=== PATIENT | female | born 1975 | race Hispanic/Latino ===

== ENCOUNTER 2016-11-28 12:14 | Emergency (ER) | payer OTHER ==
[2016-11-28 13:21] LABS: Basophils % (Auto) 0.5 % (0.0-1.8); Hematocrit 41.6 % (30.3-42.9); Hemoglobin 13.9 gm/dl (10.1-14.3); Mean Corpuscular HGB Conc 34 % (30-34); Mean Corpuscular Hemoglobin 29 pg (28-32); Mean Corpuscular Volume 86 fl (79-97); Platelet Count 166 K/mm3 (140-440); Red Blood Count 4.82 M/mm3 (3.65-5.03); Red Cell Distribution Width 14.5 % (13.2-15.2); White Blood Count 10.2 K/mm3 (4.5-11.0)
[2016-11-28] MEDS ORDERED: VALIUM IV ONE (13:39)
[2016-11-28 13:44] LABS: Blood Urea Nitrogen 13 mg/dL (7-17); Calcium 8.5 mg/dL (8.4-10.2); Carbon Dioxide 24 mmol/L (22-30); Glucose 104 mg/dL (65-100)
--- NOTE | 2016-11-28 13:44 | Emergency Department Report ---
ED Palpitations HPI - General Chief Complaint: Extremity Injury, Lower Stated Complaint: HBP/SOB/PANIC ATTACKS/RASH/SWELLING OF FEET Time Seen by Provider: 11/28/16 13:19 Source: patient Mode of arrival: Ambulatory Limitations: No Limitations - Related Data Previous Rx's Medication Instructions Recorded Last Taken Type ALBUTEROL Inhaler [ProAir HFA 2 puff IH QID PRN 14 Days 12/22/13 Unknown Rx Inhaler] Amoxicillin [Trimox CAP] 500 mg PO TID 10 Days 12/22/13 Unknown Rx predniSONE [Deltasone] 15 mg PO .TAPER #21 tab 12/22/13 Unknown Rx traMADol [Ultram 50 MG tab] 50 mg PO Q4HR PRN #20 tablet 02/21/14 Unknown Rx ALBUTEROL Inhaler [ProAir HFA 2 puff IH QID PRN #1 inhalation 06/24/14 Unknown Rx Inhaler] Azithromycin [Zithromax Z-SADAF] 250 mg PO DAILY #6 tablet 06/24/14 Unknown Rx Prednisone [Prednisone 10 mg 10 mg PO .TAPER #1 tab.ds.pk 06/24/14 Unknown Rx (6-Day Pack, 21 Tabs)] hydrOXYzine PAMOATE [Vistaril] 50 mg PO Q6HR PRN #20 capsule 06/24/14 Unknown Rx Gabapentin [Neurontin] 300 mg PO BID #30 cap 11/28/16 Unknown Rx Prednisone [predniSONE 10 mg 10 mg PO .TAPER #1 tab.ds.pk 11/28/16 Unknown Rx (6-Day Pack, 21 Tabs)] Triamcinolone Acetonide 60 ml TP BID #1 lotion 11/28/16 Unknown Rx [Triamcinolone 0.1% LOTION] hydrOXYzine HCL [Atarax] 25 mg PO Q6HR PRN #30 tablet 11/28/16 Unknown Rx Allergies Allergy/AdvReac Type Severity Reaction Status Date / Time No Known Allergies Allergy Verified 12/22/13 18:52 ED Review of Systems ROS: Stated complaint: HBP/SOB/PANIC ATTACKS/RASH/SWELLING OF FEET Other details as noted in HPI ED Past Medical Hx - Past Medical History Hx Hypertension: No Hx CVA: No Hx Heart Attack/AMI: No Hx Congestive Heart Failure: No Hx Diabetes: No Hx Deep Vein Thrombosis: No Hx Pulmonary Embolism: No Hx GERD: No Hx Liver Disease: No Hx Renal Disease: No Hx Sickle Cell Disease: No Hx Arthritis: No Hx Headaches / Migraines: No Hx Seizures: Yes (none since age 1) Hx Psychiatric Treatment: Yes (Anxiety attacks) Hx Asthma: Yes Hx COPD: No Hx Tuberculosis: No - Surgical History Additional Surgical History: 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 - Social History Smoking Status: Current Every Day Smoker - Medications Home Medications: Home Medications Medication Instructions Recorded Confirmed Last Taken Type ALBUTEROL Inhaler [ProAir HFA 2 puff IH QID PRN 14 Days 12/22/13 Unknown Rx Inhaler] Amoxicillin [Trimox CAP] 500 mg PO TID 10 Days 12/22/13 Unknown Rx predniSONE [Deltasone] 15 mg PO .TAPER #21 tab 12/22/13 Unknown Rx traMADol [Ultram 50 MG tab] 50 mg PO Q4HR PRN #20 tablet 02/21/14 Unknown Rx ALBUTEROL Inhaler [ProAir HFA 2 puff IH QID PRN #1 inhalation 06/24/14 Unknown Rx Inhaler] Azithromycin [Zithromax Z-SADAF] 250 mg PO DAILY #6 tablet 06/24/14 Unknown Rx Prednisone [Prednisone 10 mg 10 mg PO .TAPER #1 tab.ds.pk 06/24/14 Unknown Rx (6-Day Pack, 21 Tabs)] hydrOXYzine PAMOATE [Vistaril] 50 mg PO Q6HR PRN #20 capsule 06/24/14 Unknown Rx Gabapentin [Neurontin] 300 mg PO BID #30 cap 11/28/16 Unknown Rx Prednisone [predniSONE 10 mg 10 mg PO .TAPER #1 tab.ds.pk 11/28/16 Unknown Rx (6-Day Pack, 21 Tabs)] Triamcinolone Acetonide 60 ml TP BID #1 lotion 11/28/16 Unknown Rx [Triamcinolone 0.1% LOTION] hydrOXYzine HCL [Atarax] 25 mg PO Q6HR PRN #30 tablet 11/28/16 Unknown Rx ED Physical Exam - General Limitations: No Limitations ED Course Vital Signs 11/28/16 11/28/16 12:34 15:30 Temperature 99.0 F 98.5 F Pulse Rate 109 H 88 Respiratory 16 18 Rate Blood Pressure 179/110 Blood Pressure 150/88 [Left] O2 Sat by Pulse 100 100 Oximetry ED Medical Decision Making - Lab Data Result diagrams: 11/28/16 12:45 11/28/16 12:45 Critical care attestation.: If time is entered above; I have spent that time in minutes in the direct care of this critically ill patient, excluding procedure time. ED Disposition Clinical Impression: Rash and nonspecific skin eruption, Anxiety Disposition: DISCHARGED TO HOME OR SELFCARE Is pt being admited?: No Condition: Stable Instructions: Generalized Anxiety Disorder (ED) Prescriptions: Gabapentin [Neurontin] 300 mg PO BID #30 cap hydrOXYzine HCL [Atarax] 25 mg PO Q6HR PRN #30 tablet PRN Reason: Itching Prednisone [predniSONE 10 mg (6-Day Pack, 21 Tabs)] 10 mg PO .TAPER #1 tab.ds.pk Triamcinolone Acetonide [Triamcinolone 0.1% LOTION] 60 ml TP BID #1 lotion Referrals: SUKI VALENCIA MD [Primary Care Provider] - 3-5 Days Forms: Work/School Release Form(ED)
[2016-11-28 13:45] LABS: Anion Gap 20 mmol/L; Chloride 99.6 mmol/L (98-107); Potassium 3.8 mmol/L (3.6-5.0); Sodium 140 mmol/L (137-145)
[2016-11-28 15:34] VITALS: BP 150/88
== END 2016-11-28 15:34 | disposition home or self-care (01) ==
LOC: ED 12:14
DX: F41.9 Anxiety disorder, unspecified (principal); R21 Rash and other nonspecific skin eruption; R53.1 Weakness; J45.909 Unspecified asthma, uncomplicated; Z90.711 Acquired absence of uterus with remaining cervical stump; F17.200 Nicotine dependence, unspecified, uncomplicated
CPT/HCPCS: 36415; 80048; 85025; 93005; 93010; 96374; 99283; J3360

== ENCOUNTER 2017-02-18 19:22 | Emergency (ER) | payer OTHER ==
[2017-02-18] MEDS ORDERED: TORADOL IM ONE (20:32)
[2017-02-18 20:58] VITALS: BP 147/89
--- NOTE | 2017-02-18 21:00 | Emergency Department Report ---
ED Back Pain/Injury HPI - General Chief Complaint: Abdominal Pain Stated Complaint: BACK PAIN Time Seen by Provider: 02/18/17 20:31 Source: patient Limitations: No Limitations - History of Present Illness Initial Comments: This is a 41-year-old female nontoxic, well nourished in appearance, no acute signs of distress as ED complaining of lower back pain 2 days. Patient stated she was in [employer] and was taking a shower when she slipped and that on her buttock /lower back region. Patient denies pain radiating to lower extremities. Describes pain as aching with level of 10/10. Patient denies any loss of consciousness. Denies head trauma. Patient denies loss of consciousness, head trauma, ecchymosis, chest pain, short of breath, headache, blurry vision, fever , chills, stiff neck, dysuria, polyuria, polydipsia, decreased range of motion, bladder or bowel instability, diaphoresis, nausea, vomiting, abdominal pain, joint pain or swelling, visual changes, chest wall tenderness, numbness or tingling sensation extremity. Patient agrees to good rectal tone with no bladder overflow. Patient is currently ambulatory with no assistance. Patient denies any EtOH or recreational drugs. Patient denies any allergies or past medical history. MD Complaint: back injury -: Gradual, days(s) (2) Place: other (usp) Radiation: none Severity: moderate Severity scale (0 -10): 10 Quality: aching Consistency: constant Improves With: none Worsens With: none Context: fall Associated Symptoms: denies other symptoms. denies: confusion, weakness, chest pain, numbness, difficulty walking, cough, difficulty urinating, diaphoresis, incontinence, fever/chills, constipation, headaches, abdominal pain, loss of appetite, malaise, nausea/vomiting, rash, seizure, shortness of breath, syncope - Related Data Previous Rx's Medication Instructions Recorded Last Taken Type ALBUTEROL Inhaler [ProAir HFA 2 puff IH QID PRN 14 Days 12/22/13 Unknown Rx Inhaler] Amoxicillin [Trimox CAP] 500 mg PO TID 10 Days 12/22/13 Unknown Rx predniSONE [Deltasone] 15 mg PO .TAPER #21 tab 12/22/13 Unknown Rx traMADol [Ultram 50 MG tab] 50 mg PO Q4HR PRN #20 tablet 02/21/14 Unknown Rx ALBUTEROL Inhaler [ProAir HFA 2 puff IH QID PRN #1 inhalation 06/24/14 Unknown Rx Inhaler] Azithromycin [Zithromax Z-SADAF] 250 mg PO DAILY #6 tablet 06/24/14 Unknown Rx Prednisone [Prednisone 10 mg 10 mg PO .TAPER #1 tab.ds.pk 06/24/14 Unknown Rx (6-Day Pack, 21 Tabs)] hydrOXYzine PAMOATE [Vistaril] 50 mg PO Q6HR PRN #20 capsule 06/24/14 Unknown Rx Gabapentin [Neurontin] 300 mg PO BID #30 cap 11/28/16 Unknown Rx Prednisone [predniSONE 10 mg 10 mg PO .TAPER #1 tab.ds.pk 11/28/16 Unknown Rx (6-Day Pack, 21 Tabs)] Triamcinolone Acetonide 60 ml TP BID #1 lotion 11/28/16 Unknown Rx [Triamcinolone 0.1% LOTION] hydrOXYzine HCL [Atarax] 25 mg PO Q6HR PRN #30 tablet 11/28/16 Unknown Rx Cyclobenzaprine [Flexeril] 10 mg PO TID PRN #15 tablet 02/18/17 Unknown Rx Ibuprofen [Motrin 600 MG tab] 600 mg PO Q8H PRN #30 tablet 02/18/17 Unknown Rx Allergies Allergy/AdvReac Type Severity Reaction Status Date / Time No Known Allergies Allergy Verified 12/22/13 18:52 ED Review of Systems ROS: Stated complaint: BACK PAIN Other details as noted in HPI Constitutional: denies: chills, fever Eyes: denies: eye pain, eye discharge, vision change ENT: denies: ear pain, throat pain Respiratory: denies: cough, shortness of breath, wheezing Cardiovascular: denies: chest pain, palpitations Endocrine: no symptoms reported Gastrointestinal: denies: abdominal pain, nausea, diarrhea Genitourinary: denies: urgency, dysuria, discharge Musculoskeletal: denies: back pain, joint swelling, arthralgia Skin: denies: rash, lesions Neurological: denies: headache, weakness, paresthesias Psychiatric: denies: anxiety, depression Hematological/Lymphatic: denies: easy bleeding, easy bruising ED Past Medical Hx - Past Medical History Previous Medical History?: Yes Hx Hypertension: No Hx CVA: No Hx Heart Attack/AMI: No Hx Congestive Heart Failure: No Hx Diabetes: No Hx Deep Vein Thrombosis: No Hx Pulmonary Embolism: No Hx GERD: No Hx Liver Disease: No Hx Renal Disease: No Hx Sickle Cell Disease: No Hx Arthritis: No Hx Headaches / Migraines: No Hx Seizures: Yes (none since age 1) Hx Psychiatric Treatment: Yes (Anxiety attacks) Hx Asthma: Yes Hx COPD: No Hx Tuberculosis: No - Surgical History Past Surgical History?: Yes Additional Surgical History: 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 - Social History Smoking Status: Current Every Day Smoker Substance Use Type: Alcohol - Medications Home Medications: Home Medications Medication Instructions Recorded Confirmed Last Taken Type ALBUTEROL Inhaler [ProAir HFA 2 puff IH QID PRN 14 Days 12/22/13 Unknown Rx Inhaler] Amoxicillin [Trimox CAP] 500 mg PO TID 10 Days 12/22/13 Unknown Rx predniSONE [Deltasone] 15 mg PO .TAPER #21 tab 12/22/13 Unknown Rx traMADol [Ultram 50 MG tab] 50 mg PO Q4HR PRN #20 tablet 02/21/14 Unknown Rx ALBUTEROL Inhaler [ProAir HFA 2 puff IH QID PRN #1 inhalation 06/24/14 Unknown Rx Inhaler] Azithromycin [Zithromax Z-SADAF] 250 mg PO DAILY #6 tablet 06/24/14 Unknown Rx Prednisone [Prednisone 10 mg 10 mg PO .TAPER #1 tab.ds.pk 06/24/14 Unknown Rx (6-Day Pack, 21 Tabs)] hydrOXYzine PAMOATE [Vistaril] 50 mg PO Q6HR PRN #20 capsule 06/24/14 Unknown Rx Gabapentin [Neurontin] 300 mg PO BID #30 cap 11/28/16 Unknown Rx Prednisone [predniSONE 10 mg 10 mg PO .TAPER #1 tab.ds.pk 11/28/16 Unknown Rx (6-Day Pack, 21 Tabs)] Triamcinolone Acetonide 60 ml TP BID #1 lotion 11/28/16 Unknown Rx [Triamcinolone 0.1% LOTION] hydrOXYzine HCL [Atarax] 25 mg PO Q6HR PRN #30 tablet 11/28/16 Unknown Rx Cyclobenzaprine [Flexeril] 10 mg PO TID PRN #15 tablet 02/18/17 Unknown Rx Ibuprofen [Motrin 600 MG tab] 600 mg PO Q8H PRN #30 tablet 02/18/17 Unknown Rx ED Physical Exam - General Limitations: No Limitations General appearance: alert, in no apparent distress - Head Head exam: Present: atraumatic, normocephalic, normal inspection - Eye Eye exam: Present: normal appearance, PERRL, EOMI. Absent: scleral icterus, conjunctival injection, nystagmus, periorbital swelling, periorbital tenderness Pupils: Present: normal accommodation - ENT ENT exam: Present: normal exam, normal orophraynx, mucous membranes moist, TM's normal bilaterally, normal external ear exam - Neck Neck exam: Present: normal inspection, full ROM. Absent: tenderness, meningismus, lymphadenopathy, thyromegaly - Respiratory Respiratory exam: Present: normal lung sounds bilaterally. Absent: respiratory distress, wheezes, rales, rhonchi, stridor, chest wall tenderness, accessory muscle use, decreased breath sounds, prolonged expiratory - Cardiovascular Cardiovascular Exam: Present: regular rate, normal rhythm, normal heart sounds. Absent: bradycardia, tachycardia, irregular rhythm, systolic murmur, diastolic murmur, rubs, gallop - GI/Abdominal GI/Abdominal exam: Present: soft, normal bowel sounds. Absent: distended, tenderness, guarding, rebound, rigid, diminished bowel sounds - Rectal Rectal exam: Present: deferred - Extremities Exam Extremities exam: Present: normal inspection, full ROM, normal capillary refill. Absent: tenderness, pedal edema, joint swelling, calf tenderness - Back Exam Back exam: Present: normal inspection, full ROM, paraspinal tenderness (lumbar region), vertebral tenderness (lumbar spinal tenderness). Absent: CVA tenderness (R), CVA tenderness (L), muscle spasm, rash noted - Expanded Back Exam Expanded Back exam: Present: normal rectal tone. Absent: saddle anesthesia Back exam: Negative Straight Leg Raising: Left, Right - Neurological Exam Neurological exam: Present: alert, oriented X3, CN II-XII intact, normal gait, reflexes normal - Expanded Neurological Exam Expanded Patient oriented to: Present: person, place, time Speech: Present: fluid speech Cranial nerves: EOM's Intact: Normal, Gag Reflex: Normal, Tongue Deviation: Normal, Nystagmus: Normal, Facial Sensation: Normal, Facial Palsy with Forehead Movement: Normal, Facial Palsy without Forehead Movement: Normal Cerebellar function: Finger to Nose: Normal, Heel to Garay: Normal, Romberg: Normal Upper motor neuron: Cy Neglect: Normal, Pronator Drift: Normal, Babinski Sign : Normal, Sensory Extinction: Normal Sensory exam: Upper Extremity Light Touch: Normal, Upper Extremity Pin Prick: Normal, Upper Extremity Temperature: Normal, UE 2 Point Discrimination: Normal, Lower Extremity Light Touch: Normal, Lower Extremity Pin Prick: Normal, Lower Extremity Temperature: Normal, LE 2 Point Discrimination: Normal Motor strength exam: RUE: 5, LUE: 5, RLE: 5, LLE: 5 DTR: bicep (R): 2+, bicep (L): 2+, tricep (R): 2+, tricep (L): 2+, knee (R): 2+ , knee (L): 2+, ankle (R): 2+, ankle (L): 2+ Best Eye Response (Mukund): (4) open spontaneously Best Motor Response (Mukund): (6) obeys commands Best Verbal Response (Mukund): (5) oriented Mukund Total: 15 - Psychiatric Psychiatric exam: Present: normal affect, normal mood - Skin Skin exam: Present: warm, dry, intact, normal color. Absent: rash ED Course Vital Signs 02/18/17 19:35 Temperature 99.1 F Pulse Rate 92 H Respiratory 16 Rate Blood Pressure 152/107 O2 Sat by Pulse 97 Oximetry - Reevaluation(s) Reevaluation #1: 02/18/17 21:03 Patient is speaking in full sentences with no signs of distress noted. ED Medical Decision Making - Medical Decision Making Ed course: This is a 41-year-old female that presents with low back strain 1- patient was examined myself. Patient is stable. X-ray has been obtained of lumbar spine with negative findings of the fractures or dislocations. Dictated by radiologist Patient notified of x-ray findings with no further questions. 2-Patient received Toradol 60 mg IM in the ED. Patient denies any kidney abnormalities or mouth functions. 3- patient was instructed follow-up with your primary care doctor in 3-5 days or if symptoms worsen such as bladder or bowel stability, chest pain, short of breath, numbness or tingling sensation in extremities, headache, dizziness, visual changes, nausea vomiting, or abdominal pain, return back to emergency room as was possible. 4- patient received ibuprofen and Flexeril and was instructed not operate heavy machinery while taking Flexeril due to sedation 5- At time time of discharge, the patient does not seem toxic or ill in appearance. No acute signs of distress noted. Patient agrees to discharge treatment plan of care. No further questions noted by the patient. Critical care attestation.: If time is entered above; I have spent that time in minutes in the direct care of this critically ill patient, excluding procedure time. ED Disposition Clinical Impression: Low back strain Qualifiers: Encounter type: initial encounter Qualified Code(s): S39.012A - Strain of muscle, fascia and tendon of lower back, initial encounter Disposition: TO HOME OR SELFCARE Is pt being admited?: No Does the pt Need Aspirin: No Condition: Stable Instructions: Abdominal Pain (ED), Low Back Strain (ED), Ibuprofen (By mouth), Cyclobenzaprine (By mouth) Additional Instructions: Take ibuprofen and Flexeril as prescribed. Do not operate heavy machinery while taking Flexeril due to sedation follow-up with your primary care doctor in 3-5 days or if symptoms worsen such as bladder or bowel stability, chest pain, short of breath, numbness or tingling sensation in extremities, headache, dizziness, visual changes, nausea vomiting, or abdominal pain, return back to emergency room as was possible. Prescriptions: Cyclobenzaprine [Flexeril] 10 mg PO TID PRN #15 tablet PRN Reason: Muscle Spasm Ibuprofen [Motrin 600 MG tab] 600 mg PO Q8H PRN #30 tablet PRN Reason: Pain Referrals: PRIMARY CAREMD [Primary Care Provider] - 3-5 Days TOMMY ACHARYA MD [Staff Physician] - 3-5 Days [facility] [Outside] - 3-5 Days [facility] [Outside] - 3-5 Days SABRINA REYNOLDS MD [Staff Physician] - 3-5 Days Forms: Work/School Release Form(ED)
--- NOTE | 2017-02-18 21:42 | XRay Report ---
FINAL REPORT EXAM: XR SPINE LUMBOSACRAL 2-3V HISTORY: spinal tenderness TECHNIQUE: Lumbar spine three views 3 images PRIORS: None. FINDINGS: Multiple phleboliths are seen in the pelvis. Vertebral body height is preserved. No acute fracture or anterolisthesis is identified. Intervertebral disc height is preserved. Small osteophytes are noted at multiple levels. IMPRESSION: 1. No acute osseous abnormality is identified. 2. Degenerative changes are noted.
== END 2017-02-18 22:23 | disposition home or self-care (01) ==
LOC: ED 19:22
DX: S39.012A Strain of muscle, fascia and tendon of lower back, initial encounter (principal); J45.909 Unspecified asthma, uncomplicated; F17.200 Nicotine dependence, unspecified, uncomplicated; W19.XXXA Unspecified fall, initial encounter; Y93.9 Activity, unspecified; Y92.9 Unspecified place or not applicable; Y99.9 Unspecified external cause status
CPT/HCPCS: 72100; 96372; 99283; J1885

== ENCOUNTER 2017-05-31 20:20 | Emergency (ER) | payer OTHER ==
[2017-05-31] MEDS ORDERED: ZOFRAN IV ONE (21:02)
[2017-05-31] MEDS ORDERED: MORPHINE IV ONE (21:02)
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
[2017-05-31 21:25] LABS: Mean Corpuscular HGB Conc 33 % (30-34); Mean Corpuscular Hemoglobin 29 pg (28-32); Mean Corpuscular Volume 88 fl (79-97); Platelet Count 272 K/mm3 (140-440); Red Blood Count 5.13 M/mm3 (3.65-5.03); White Blood Count 20.1 K/mm3 (4.5-11.0)
[2017-05-31 21:48] LABS: Alanine Aminotransferase 114 units/L (7-56); Albumin 4.4 g/dL (3.9-5); Albumin/Globulin Ratio 1.3 %; Alkaline Phosphatase 72 units/L (35-129); Anion Gap 19 mmol/L; BUN/Creatinine Ratio 38; Blood Urea Nitrogen 15 mg/dL (7-17); Carbon Dioxide 27 mmol/L (22-30); Chloride 94.2 mmol/L (98-107); Glucose 128 mg/dL (65-100); Potassium 4.4 mmol/L (3.6-5.0); Sodium 136 mmol/L (137-145); Total Protein 7.9 g/dL (6.3-8.2)
[2017-05-31 22:17] LABS: Basophils % (Manual) 0 % (0.0-1.8); Blastocytes % (Manual) 0 %; Eosinophils % (Manual) 0 % (0.0-4.3)
[2017-05-31 22:18] LABS: Diff Status Complete; Poikilocytosis 1+
[2017-05-31] MEDS ORDERED: NACL ONE (23:10)
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
[2017-06-01] MEDS ORDERED: SUBLIMAZE IV ONE ×2 (00:25→01:42)
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
[2017-06-01] MEDS ORDERED: TORADOL IV ONE (01:42)
[2017-06-01 04:37] VITALS: BP 103/65
== END 2017-06-01 03:15 | disposition home or self-care (01) ==
LOC: ED 20:20
DX: S29.012A Strain of muscle and tendon of back wall of thorax, initial encounter (principal); S30.1XXA Contusion of abdominal wall, initial encounter; R19.00 Intra-abdominal and pelvic swelling, mass and lump, unspecified site; J45.909 Unspecified asthma, uncomplicated; F12.10 Cannabis abuse, uncomplicated; F17.200 Nicotine dependence, unspecified, uncomplicated; V89.2XXA Person injured in unspecified motor-vehicle accident, traffic, initial encounter; Y93.89 Activity, other specified; Y99.8 Other external cause status; Y92.488 Other paved roadways as the place of occurrence of the external cause
CPT/HCPCS: 36415; 72072; 74177; 80053; 85007; 85025; 86850; 86900; 86901; 93005; 93010; 96374; 96375; 96376; 99285; J1885; J2270; J2405; J3010; Q9967

== ENCOUNTER 2018-09-12 19:12 | Emergency (ER) | payer OTHER ==
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
--- NOTE | 2018-09-13 00:54 | Emergency Department Report ---
- General Chief complaint: Skin/Abscess/Foreign Body Stated complaint: SKIN IRRITATION/SPIDER BITE Time Seen by Provider: 09/12/18 21:04 Source: patient Mode of arrival: Ambulatory Limitations: No Limitations - History of Present Illness Initial comments: Pt presents to the ED with c/o cystic acne to the face that began a few days ago. She states she used toothpaste and some time of cream on the face and believes she left it on to long and it worsened the face. She states she now has erythema and clear drainage from three areas on the face. She also has scabs present over the three areas with some crusting. She denies any fever or pus drainage. - Related Data Home Medications Medication Instructions Recorded Confirmed Last Taken Lisinopril [Zestril] 10 mg PO QDAY 05/31/17 08/10/18 05/31/17 Previous Rx's Medication Instructions Recorded Last Taken Type Ibuprofen [Motrin 800 MG tab] 800 mg PO Q8HR PRN #20 tablet 06/01/17 Unknown Rx Citalopram [celeXA] 10 mg PO QDAY #30 tablet 08/12/18 Unknown Rx diphenhydrAMINE [Benadryl CAP] 25 mg PO Q6H PRN #20 capsule 08/12/18 Unknown Rx Doxycycline [Vibramycin CAP] 100 mg PO BID 7 Days #14 capsule 09/13/18 Unknown Rx Allergies Allergy/AdvReac Type Severity Reaction Status Date / Time No Known Allergies Allergy Verified 05/31/17 21:02 Abscess Boil HPI - HPI Chief Complaint: Skin/Abscess/Foreign Body Stated Complaint: SKIN IRRITATION/SPIDER BITE Time Seen by Provider: 09/12/18 21:04 Home Medications: Home Medications Medication Instructions Recorded Confirmed Last Taken Lisinopril [Zestril] 10 mg PO QDAY 05/31/17 08/10/18 05/31/17 Previous Rx's Medication Instructions Recorded Last Taken Type Ibuprofen [Motrin 800 MG tab] 800 mg PO Q8HR PRN #20 tablet 06/01/17 Unknown Rx Citalopram [celeXA] 10 mg PO QDAY #30 tablet 08/12/18 Unknown Rx diphenhydrAMINE [Benadryl CAP] 25 mg PO Q6H PRN #20 capsule 08/12/18 Unknown Rx Doxycycline [Vibramycin CAP] 100 mg PO BID 7 Days #14 capsule 09/13/18 Unknown Rx Allergies/Adverse Reactions: Allergies Allergy/AdvReac Type Severity Reaction Status Date / Time No Known Allergies Allergy Verified 05/31/17 21:02 ED Review of Systems ROS: Stated complaint: SKIN IRRITATION/SPIDER BITE Other details as noted in HPI Comment: All other systems reviewed and negative ED Past Medical Hx - Past Medical History Hx Hypertension: Yes Hx CVA: No Hx Heart Attack/AMI: No Hx Congestive Heart Failure: No Hx Diabetes: No Hx Deep Vein Thrombosis: No Hx Pulmonary Embolism: No Hx GERD: No Hx Liver Disease: No Hx Renal Disease: No Hx Sickle Cell Disease: No Hx Arthritis: No Hx Headaches / Migraines: No Hx Seizures: Yes (none since age 1) Hx Psychiatric Treatment: Yes (Anxiety attacks) Hx Asthma: Yes Hx COPD: No Hx Tuberculosis: No - Surgical History Additional Surgical History: Ovarian tumor removed (benign) - Social History Smoking Status: Current Some Day Smoker - Medications Home Medications: Home Medications Medication Instructions Recorded Confirmed Last Taken Type Lisinopril [Zestril] 10 mg PO QDAY 05/31/17 08/10/18 05/31/17 History Ibuprofen [Motrin 800 MG tab] 800 mg PO Q8HR PRN #20 tablet 06/01/17 08/10/18 Unknown Rx Citalopram [celeXA] 10 mg PO QDAY #30 tablet 08/12/18 Unknown Rx diphenhydrAMINE [Benadryl CAP] 25 mg PO Q6H PRN #20 capsule 08/12/18 Unknown Rx Doxycycline [Vibramycin CAP] 100 mg PO BID 7 Days #14 capsule 09/13/18 Unknown Rx ED Physical Exam - General Limitations: No Limitations General appearance: alert, in no apparent distress - Head Head exam: Present: normocephalic, other (three small areas of erythema and induration to the face that appear to be scabbed and crusted, no fluctuance, no obvious drainage ) - Eye Eye exam: Present: normal appearance - ENT ENT exam: Present: mucous membranes moist - Respiratory Respiratory exam: Absent: respiratory distress - Neurological Exam Neurological exam: Present: alert, oriented X3 - Psychiatric Psychiatric exam: Present: normal affect, normal mood ED Course Vital Signs 09/12/18 09/12/18 19:55 21:04 Temperature 98.7 F 98.7 F Pulse Rate 100 H 101 H Respiratory 18 18 Rate Blood Pressure 157/95 157/95 O2 Sat by Pulse 98 98 Oximetry ED Medical Decision Making - Medical Decision Making Pt presents with what appears to be cystic acne on exam. She has three small areas of induration, erythema, scabbing and crusting to the face. no fluctuance, no obvious drainage. VSS. No fever. will place pt on doxycycline. Advised to follow up with primary care doctor in the next 2-3 days. Pt given good rx card and list of resources in the area. Return to the ED for any new or worsening symptoms. Critical care attestation.: If time is entered above; I have spent that time in minutes in the direct care of this critically ill patient, excluding procedure time. ED Disposition Clinical Impression: Cystic acne Disposition: - TO HOME OR SELFCARE Is pt being admited?: No Does the pt Need Aspirin: No Condition: Stable Instructions: Acne (ED) Additional Instructions: Follow up with a primary care doctor in the next 2-3 days. Take all medication as prescribed. Return to the emergency room for any new or worsening symptoms. Prescriptions: Doxycycline [Vibramycin CAP] 100 mg PO BID 7 Days #14 capsule Referrals: SUKI VALENCIA MD [Primary Care Provider] - 2-3 Days Time of Disposition: 00:57 Print Language: KINYARWANDA
--- NOTE | 2018-09-13 16:29 | Event Note ---
Date: 09/13/18 pt unable to fill doxy due to cost she was seen yesterday for cystic acne on her face v abscess per pt HPI over the phone Leena [phone] pt no [phone] rx changed to bactrim ds for 5 days rx to pharmacy
== END 2018-09-13 01:15 | disposition home or self-care (01) ==
LOC: ED 19:12
CPT/HCPCS: 99282

== ENCOUNTER 2018-12-06 22:40 | Emergency (ER) | payer SELFPAY ==
[2018-12-07] MEDS ORDERED: VIBRAMYCIN PO ONE (02:34)
[2018-12-07] MEDS ORDERED: VISTARIL PO ONE (02:34)
--- NOTE | 2018-12-07 02:36 | Emergency Department Report ---
ED Rash HPI - HPI Time Seen by Provider: 12/07/18 02:31 Duration: 5 Days Location: Other Suspected Cause: Other Rash Symptoms: No Itching, No Facial Swelling, No Tongue/Oral Swelling, No Breathing Difficulties, No Choking Sensation, No Wheezing/Dyspnea, No Peeling, No Blistering, No Fever, No Lightheaded, No Malaise, No Myalgias Severity: mild Other History: Patient is a 43-year-old female who comes to the ER today with an acne breakout on her face. She states that her skin feels dry. Her mother has recently and she has not been eating or drinking well. She states she said that she does not want herself or anybody else. She states that she did not she would never see her mother again. She is currently living in her mother's home with her brother. She was recently diagnosed with cystic acne and was given a prescription for Doxy but cannot afford it. They did give her Bactrim but that has not helped with the need. ED Review of Systems ROS: Stated complaint: Other details as noted in HPI Comment: All other systems reviewed and negative ED Past Medical Hx - Past Medical History Hx Hypertension: Yes Hx CVA: No Hx Heart Attack/AMI: No Hx Congestive Heart Failure: No Hx Diabetes: No Hx Deep Vein Thrombosis: No Hx Pulmonary Embolism: No Hx GERD: No Hx Liver Disease: No Hx Renal Disease: No Hx Sickle Cell Disease: No Hx Arthritis: No Hx Headaches / Migraines: No Hx Seizures: Yes (none since age 1) Hx Psychiatric Treatment: Yes (Anxiety attacks) Hx Asthma: Yes Hx COPD: No Hx Tuberculosis: No - Surgical History Past Surgical History?: Yes Additional Surgical History: Ovarian tumor removed (benign) - Family History Family history: no significant - Social History Smoking Status: Current Some Day Smoker - Medications Home Medications: Home Medications Medication Instructions Recorded Confirmed Last Taken Type Lisinopril [Zestril] 10 mg PO QDAY 05/31/17 08/10/18 05/31/17 History Citalopram [celeXA] 10 mg PO QDAY #30 tablet 08/12/18 Unknown Rx diphenhydrAMINE [Benadryl CAP] 25 mg PO Q6H PRN #20 capsule 08/12/18 Unknown Rx DOXYCYCLINE Hyclate [Vibramycin 100 mg PO BID 7 Days #14 capsule 12/07/18 Unknown Rx CAP] Rash Exam - Exam General: Vital signs noted. No distress. Alert and acting appropriately. She has cystic acne appears areas on her face but the area that is most concerning to her is on her right temporal area. There is no cellulitis or abscess formation. HEENT: No Periorbital Edema, No Conjuctival Injection Lungs: Yes Good Air Exchange, No Wheezes Heart: Yes Regular, No Murmur Skin: Yes Other, No Urticarial Rash Other: Positive: Abdomen Normal, Neurologic Normal, Musculoskeletal Normal ED Medical Decision Making - Medical Decision Making NO HI NO SI ACNE AND COULD NOT AFFORD MEDS CONCERNED INFECTED VSS NO FEVER NON TOXIC TAKING PO AMBULATORY Will discharge patient home with good Rx and other supplemental coupons as well as referral to dermatology. Critical care attestation.: If time is entered above; I have spent that time in minutes in the direct care of this critically ill patient, excluding procedure time. ED Disposition Clinical Impression: Cystic acne vulgaris, Anxiety Disposition: - TO HOME OR SELFCARE Is pt being admited?: No Does the pt Need Aspirin: No Condition: Stable Additional Instructions: DIET TOLERATED MEDS ORDERED TODAY IN ER FOLLOW INSTRUCTIONS ON THE BOTTLE FOLLOW UP PCP WITHIN 48 HOURS TO ENSURE YOU ARE GETTING BETTER ACTIVITY TOLERATED MOTRIN OR TYLENOL FOR PAIN OR FEVER RETURN TO THE ER FOR WORSENING SYMPTOMS NOT RELIEVED BY YOUR MEDICATIONS. Referrals: [facility] [Outside] - 3-5 Days MANUELA GAN MD [Referring] - 3-5 Days Time of Disposition: 02:35
== END 2018-12-07 02:59 | disposition home or self-care (01) ==
LOC: ED 22:40
DX: L70.0 Acne vulgaris (principal); F41.9 Anxiety disorder, unspecified; F17.200 Nicotine dependence, unspecified, uncomplicated; I10 Essential (primary) hypertension; J45.909 Unspecified asthma, uncomplicated; Z79.899 Other long term (current) drug therapy
CPT/HCPCS: 99282; Q0177